=== PATIENT | female | born 1980 | race Two or more races ===

== ENCOUNTER 2017-05-07 10:34 | Emergency (ER) | payer MEDICAID ==
[~2017-05-07] VITALS: Ht 154.9 cm; Wt 54.4 kg
--- NOTE | 2017-05-07 11:10 | Emergency Room Report ---
History of Present Illness General Chief Complaint: Abdominal Pain Source: Patient Present Illness HPI 31 YOFemale with one year of intermittent superpubic abdominal pain, also on left side "feels like theres a bump under my skin." Denies obvious abscess to skin Denies dysuria, flank pain, fever chills Denies chance of patient had 3 C-sections previously, last one was years ago no other abdominal or pelvic surgery Allergies: Coded Allergies: No Known Allergies (Unverified , 05/07/17) Patient History Past Medical History: none Past Surgical History: Pertinent Family History: none Social History: Denies: smoking, alcohol use, drug use Now: No Immunizations: UTD Reviewed Nursing Documentation: PMH: Agreed, PSxH: Agreed Nursing Documentation-PMH Past Medical History: No Stated History Review of Systems All Other Systems: negative except mentioned in HPI Physical Exam Vital Signs Date Time Temp Pulse Resp B/P (MAP) Pulse Ox O2 Delivery O2 Flow Rate FiO2 05/07/17 10:45 98.1 76 20 102/71 99 Room Air Sp02 EP Interpretation: reviewed, normal General Appearance: normal inspection, well appearing, no apparent distress, alert, GCS 15, non-toxic Head: normocephalic, atraumatic Eyes: bilateral eye PERRL, bilateral eye EOMI ENT: normal ENT inspection, hearing grossly normal, normal pharynx, no angioedema, normal voice, TMs + canals normal, uvula midline, moist mucus membranes Neck: normal inspection, full range of motion, supple, thyroid normal, no meningismus, no bony tend Respiratory: normal inspection, lungs clear, normal breath sounds, no rhonchi, no respiratory distress, no retraction, no accessory muscle use, no wheezing, speaking full sentences Cardiovascular #1: regular rate, rhythm, no edema, no JVD, normal capillary refill Gastrointestinal: normal inspection, normal bowel sounds, soft, no mass, no peritonitis, non-distended, no guarding, no hernia, no pulsatile mass, other - Mild suprapubic tenderness to palpation on left side. scar visualized. No assoc seroma/hematoma. 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 III-XII nml as tested, motor strength/tone normal, cerebellar normal, normal gait, speech normal Psychiatric: normal inspection, judgement/insight normal, mood/affect normal, no suicidal/homicidal ideation, no delusions Skin: normal inspection, normal color, no rash Lymphatic: normal inspection, no adenopathy Medical Decision Making Diagnostic Impression: Primary Impression: Abdominal pain, left lower quadrant ER Course patient with multiple months of left lower quadrant abdominal wall pain No associated nausea vomiting or fever or chills or diarrhea Previous 3 C-sections concerning for possible adhesions or stroma or hematoma however unlikely given this and surgery Patient states she had ultrasound at outside facility which "didn't show anything". Has not had CT to evaluate for this. 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 Disposition: Patient is to be discharged to home. Prescriptions given are motrin Patient is instructed to follow up with their primary care doctor within 5 days. Strict return precautions discussed with patient such as fever, chills, worsening/severe pain, nausea, vomiting, which may indicate severe illness. Patient verbalizes understanding and agrees with plan. Please note that this Emergency Department Report was dictated using [employer] techn[employer] technology software, occasionally this can lead to erroneous entry secondary to interpretation by the dictation equipment Last Vital Signs Date Time Temp Pulse Resp B/P (MAP) Pulse Ox O2 Delivery O2 Flow Rate FiO2 05/07/17 10:45 98.1 76 20 102/71 99 Room Air Status: improved Disposition: HOME, SELF-CARE Scripts Ibuprofen* (MOTRIN*) 600 Mg Tablet 600 MG ORAL THREE TIMES A DAY for For Pain for 7 Days, #30 TAB 0 Refills Prov: AMERICA TORRES M.D. 05/07/17 AMERICA TORRES M.D. May 07, 2017 11:10
[2017-05-07 11:26] LABS: APPEARANCE,URINE CLEAR; BILIRUBIN, URINE NEGATIVE (NEGATIVE); COLOR,URINE PALE YELLOW; GLUCOSE, URINE (UA) NEGATIVE (NEGATIVE); KETONES,URINE NEGATIVE (NEGATIVE); LEUKOCYTE ESTERASE ,URINE NEGATIVE (NEGATIVE); NITRITE,URINE NEGATIVE (NEGATIVE); PH,URINE 6 (4.5-8.0); PROTEIN,URINE NEGATIVE (NEGATIVE); UROBILINOGEN,URINE NORMAL MG/DL (0.0-1.0)
[2017-05-07] MEDS ORDERED: TYLENOL325 MG ORAL (11:57)
[2017-05-07] MEDS ORDERED: PEPCID20 MG ORAL (11:57)
[2017-05-07 13:13] LABS: BASOPHILS % (AUTO) 1.2 % (0.0-2.0); EOSINOPHILS % (AUTO) 2.5 % (0.0-3.0); HEMATOCRIT 39.9 % (37.0-47.0); HEMOGLOBIN 13.5 G/DL (12.0-16.0); LYMPHOCYTES % (AUTO) 15.1 % (20.0-45.0); MEAN CORPUSCULAR VOLUME 97 FL (80-99); MONOCYTES % (AUTO) 5.7 % (1.0-10.0); NEUTROPHILS % (AUTO) 75.5 % (45.0-75.0); PLATELET COUNT 210 K/UL (150-450); RED CELL DISTRIBUTION WIDTH 10.4 % (11.6-14.8); WHITE BLOOD COUNT 8.5 K/UL (4.8-10.8)
[2017-05-07 13:22] LABS: ANION GAP 9 mmol/L (5-15); BLOOD UREA NITROGEN 10 mg/dL (7-18); CALCIUM 8.9 MG/DL (8.5-10.1); CARBON DIOXIDE 27 MMOL/L (21-32); CHLORIDE 102 MMOL/L (98-107); CREATININE 0.8 MG/DL (0.55-1.30); POTASSIUM 3.9 MMOL/L (3.5-5.1); SODIUM 138 MMOL/L (136-145)
[2017-05-07 13:27] LABS: ALANINE AMINOTRANSFERASE 34 U/L (12-78); ALBUMIN 4.1 G/DL (3.4-5.0); ALKALINE PHOSPHATASE 102 U/L (46-116); ASPARTATE AMINO TRANSFERASE 25 U/L (15-37); BILIRUBIN,TOTAL 0.9 MG/DL (0.2-1.0)
--- NOTE | 2017-05-07 14:22 | Diagnostic Imaging Report ---
Indication: Abdominal pain. 2. Chronic abdominal pain with multiple prior sections in the past. Technique: CT of the abdomen and pelvis utilizing automated exposure control with intravenous contrast. Venous scanning performed. CT dose: Total DLP 482.81 mGycm; CTDI vol 10.95 mGy Comparison: None Findings: Imaged lung bases are clear. Heart size within normal limits. No pericardial effusion. The liver is normal in size and contour. Hepatic attenuation is homogeneous. No focal hepatic mass lesion is appreciated on this single phase exam. Hepatic veins and portal veins are patent. Gallbladder is unremarkable in appearance. No appreciable intrahepatic or extrahepatic biliary ductal dilatation. Spleen, adrenal glands and pancreas grossly unremarkable. There is a 5 mm well circumscribed low-attenuation lesion in the lower pole of the right kidney which is too small to fully characterize but probably a simple renal cyst. Similar appearing, smaller lesion noted in the midpole of the right kidney. Kidneys otherwise enhance symmetrically. No urinary tract stones or hydronephrosis bilaterally. Bladder is unremarkable in appearance. Fluid attenuation is noted within the endometrial canal, a finding which may be considered physiologic in a reproductive aged female. The uterine canal has a somewhat irregular configuration, possibly postsurgical given history of multiple prior sections. There is a defect in the anterior wall of the uterus. Anterior to this within the abdominal wall there is a somewhat heterogeneously enhancing mass lesion which measures approximately 1.9 cm AP by 5.4 cm transverse by 4.3 cm CC (series 3 image #58: Series 6 image #29). Portions of this mass are inseparable from the uterus. Adnexa appear unremarkable. No evidence of bowel obstruction. No free intraperitoneal fluid or air is identified. No appreciable focal or diffuse bowel wall thickening or perienteric inflammatory change is seen. The appendix is normal. Abdominal aorta is normal in caliber. No acute osseous abnormality seen. IMPRESSION: Mass lesion in the midline lower anterior abdominal wall, portions of which are inseparable from the uterus, near the area of the scar as detailed above. Findings may be related to abdominal wall endometriosis, particularly given the proximity to the scar. Differential considerations include granuloma, desmoid tumor, sarcoma or additional neoplastic entities. Additional findings as above. The CT scanner at [facility] is accredited by the [employer] and the scans are performed using protocols designed to limit radiation exposure to as low as reasonably achievable to attain images of sufficient resolution adequate for diagnostic evaluation.
[2017-05-07] MEDS ORDERED: IBUPROFEN600 MG ORAL (14:25)
[2017-05-07] MEDS ORDERED: Ketorolac 30mg Inj IV ONE (14:30)
[2017-05-07 14:40] VITALS: BP 102/71
== END 2017-05-07 14:42 | disposition home or self-care (01) ==
LOC: EMR 11:33
DX: R10.32 Left lower quadrant pain (principal)
CPT/HCPCS: 36415; 74177; 80053; 81003; 81025; 85025; 96374; 99284; J1885; Q9967